=== PATIENT | male | born 1955 | race Caucasian/White ===

== ENCOUNTER 2020-11-23 15:20 | Observation (INO) | payer OTHER ==
[~2020-11-23] VITALS: Ht 167.6 cm; Wt 97.1 kg
[2020-11-23 15:28] VITALS: BP 157/83
[2020-11-23] MEDS ORDERED: PRILOSEC OTC20 MG PO (15:30)
[2020-11-23 16:00] LABS: ABSOLUTE BASOPHILS 0.2 thou/uL (0.0-0.2); ABSOLUTE EOSINOPHILS 0.3 thou/uL (0.0-0.7); ABSOLUTE LYMPHOCYTES 1.9 thou/uL (0.8-5.3); ABSOLUTE MONOCYTES 0.7 thou/uL (0.0-1.2); ABSOLUTE NEUTROPHILS 6.3 thou/uL (1.6-8.1); BASOPHILS 2.3 %; EOSINOPHILS 3.4 %; HEMATOCRIT 23.2 % (42.0-52.0); LYMPHOCYTES 20.1 %; MCH 14.9 pg (26.0-34.0); MCHC 28.5 g/dL (28.0-37.0); MCV 52.2 fL (80.0-100.0); MONOCYTES 7.9 %; MPV 8.4 fl. (7.2-11.1); NUCLEATED RBCS 0 /100WBC; PLATELET COUNT* 317 thou/uL (150-400); POLYS 66.3 %; RBC 4.44 mil/uL (4.50-6.00); RDW-CV 20.8 % (10.5-14.5); WBC 9.4 thou/uL (4.0-11.0)
[2020-11-23 16:04] LABS: CALCIUM 7.6 mg/dL (8.5-10.1); HEMOGLOBIN 6.6 gm/dL (14.0-18.0); POTASSIUM 3.2 mmol/L (3.5-5.1)
[2020-11-23 16:15] LABS: ALBUMIN 3.6 g/dL (3.4-5.0); DIRECT BILIRUBIN 0.1 mg/dL (<0.1-0.3); MAGNESIUM 2.1 mg/dL (1.8-2.4); TOTAL BILIRUBIN 0.3 mg/dL (<0.1-1.0); TOTAL PROTEIN 7.2 g/dL (6.4-8.2)
[2020-11-23 18:22] LABS: ANISOCYTOSIS 2+; HYPOCHROMASIA 3+; MICROCYTES 3+; POIKILOCYTOSIS 1+; POLYCHROMASIA 1+
[2020-11-23 19:13] LABS: URINE BILIRUBIN NEGATIVE (Negative); URINE BLOOD NEGATIVE (Negative); URINE CLARITY CLEAR; URINE COLOR YELLOW; URINE GLUCOSE-RANDOM 1+ (Negative); URINE KETONES TRACE (Negative); URINE LEUKOCYTES NEGATIVE (Negative); URINE NITRITE NEGATIVE (Negative); URINE PROTEIN NEGATIVE (Negative); URINE SPECIFIC GRAVITY >= 1.030 (1.005-1.030); URINE UROBILINOGEN 0.2 E.U./dl (0.2-1.0)
[2020-11-23 19:50] VITALS: BP 133/72
[2020-11-23 20:02] VITALS: BP 138/70
[2020-11-23 21:28] LABS: HEMATOCRIT 25.7 % (42.0-52.0); HEMOGLOBIN 7.5 gm/dL (14.0-18.0)
[2020-11-23 21:51] LABS: % SATURATION 8 % (20-39); IRON 35 ug/dL (50-175)
[2020-11-24] VITALS: BP 120/60
[2020-11-24 04:00] VITALS: BP 124/64
[2020-11-24] MEDS ORDERED: ZITHROMAX500 MG PO (07:30)
[2020-11-24] MEDS ORDERED: VENTOLIN HFA 1818 GM INH (07:31)
[2020-11-24] MEDS ORDERED: PREDNISONE 20 M20 M1 PO (07:31)
[2020-11-24 07:45] LABS: HEMATOCRIT 24.8 % (42.0-52.0); HEMOGLOBIN 7.1 gm/dL (14.0-18.0); MCH 15.9 pg (26.0-34.0); MCHC 28.7 g/dL (28.0-37.0); MCV 55.4 fL (80.0-100.0); MPV 8.7 fl. (7.2-11.1); RBC 4.49 mil/uL (4.50-6.00)
[2020-11-24 07:46] LABS: CALCIUM 7.6 mg/dL (8.5-10.1); CREATININE 0.8 mg/dL (0.6-1.3); POTASSIUM 4.6 mmol/L (3.5-5.1)
[2020-11-24 08:09] VITALS: BP 137/77
--- NOTE | 2020-11-24 11:31 | EKG ---
[place] [address] ELECTROCARDIOGRAM REPORT Name: ARSENIO TEJADA Room: [address] ADM IN .R.#: [id number] Admission: 11/23/20 Attend Phys: Tyrell Rios, Discharge: Date of : 57 Date of Service: 11/23/20 1607 Report #: [id number] THIS REPORT FOR: //name// [facility] ED Test Date: 2020-11-23 Test Time: 16:07:09 Pat Name: ARSENIO TEJADA Department: Room: [facility] Gender: M Algologist: JUNIOR : 1955 Requested By: Kirk Can Order Number: [id number] MD: Simone Kramer Measurements Intervals Bowman Rate: 109 P: 17 GA: 144 QRS: 40 QRSD: 83 T: 43 QT: 347 QTc: 468 Interpretive Statements Sinus tachycardia Probable left atrial enlargement Minimal ST depression, inferior leads No previous ECG available for comparison Electronically Signed On 11-24-2020 11:30:53 [employer] by Simone Kramer [email or web address] <ELECTRONICALLY SIGNED> By: Simone Kramer MD, [facility] 11/24/20 1130 1607 1607 Simone Kramer MD, [facility] /EPI
--- NOTE | 2020-11-24 12:11 | 2DMMODE ---
[place] [address] 2 D/M-MODE ECHOCARDIOGRAM Name: MALLORYARSENIO R Room: [address] IN .David.#: [id number] Admission: 11/23/20 Attend Phys: Tyrell Rios, Discharge: Date of : 57 Date of Service: 11/24/20 1211 Report #: [id number] THIS REPORT FOR: cc: Parker Nichols MD, Matthew W. MD Holkins,Simone Dutton MD [facility] ~ APPROVED REPORT Study performed: 11/24/2020 10:16:58 EXAM: Comprehensive 2D, Doppler, and color-flow Echocardiogram Patient Location: In-Patient Room #: [facility] Status: routine BSA: 2.06 HR: 87 bpm BP: 137/77 mmHg Rhythm: NSR Other Information Study Quality: Good Indications Dyspnea 2D Dimensions IVSd: 11.99 (7-11mm) LVOT Diam: 22.42 (18-24mm) LVDd: 37.57 mm PWd: 9.66 (7-11mm) Ascending Ao: 32.23 (22-36mm) LVDs: 25.65 (25-40mm) Aortic Root: 41.37 mm Volumes Left Atrial Volume (Systole) LA ESV Index: 25.50 mL/m2 Aortic Valve AoV Peak Jose E.: 1.57 m/s AO Peak Gr.: 9.87 mmHg LVOT Max P.92 mmHg AO Mean Gr.: 5.02 mmHg LVOT Mean P.34 mmHg LVOT Max V: 1.49 m/s AO V2 VTI: 27.49 cm LVOT Mean V: 0.96 m/s LUCRECIA (VTI): 3.81 cm2 LVOT V1 VTI: 26.51 [place] [address] 2 D/M-MODE ECHOCARDIOGRAM Name: ARSENIO TEJADA Room: [address] IN ..#: [id number] Admission: 11/23/20 Attend Phys: Tyrell Rios, Discharge: Date of : 57 Date of Service: 11/24/20 1211 Report #: [id number] Mitral Valve E/A Ratio: 1.34 MV Decel. Time: 196.83 ms MV E Max Jose E.: 1.03 m/s MV PHT: 57.08 ms MVA (PHT): 3.85 cm2 TDI E/Lateral E': 8.58 E/Medial E': 7.36 Medial E' Jose E.: 0.14 m/s Lateral E' Jose E.: 0.12 m/s Pulmonary Valve PV Peak Jose E.: 1.20 m/s PV Peak Gr.: 5.74 mmHg Left Ventricle The left ventricle is normal size. There is normal LV segmental wall motion. There is normal left ventricular wall thickness. Left ventricular systolic function is normal. The left ventricular ejection fraction is within the normal range. LVEF is 60-65%. The left ventricular diastolic function is normal. Right Ventricle The right ventricle is normal size. The right ventricular systolic function is normal. Atria The left atrium size is normal. The right atrium size is normal. Aortic Valve Mild aortic valve sclerosis. No aortic regurgitation is present. There is no aortic valvular stenosis. Mitral Valve The mitral valve is normal in structure. There is no mitral valve regurgitation noted. No evidence of mitral valve stenosis. Tricuspid Valve The tricuspid valve is normal in structure. Trace tricuspid regurgitation. Unable to assess PA pressure. Pulmonic Valve The pulmonary valve is normal in structure. There is no pulmonic [place] [address] 2 D/M-MODE ECHOCARDIOGRAM Name: ARSENIO TEJADA David Room: [address] IN [facility]#: [id number] Admission: 11/23/20 Attend Phys: Tyrell Rios, Discharge: Date of : 57 Date of Service: 11/24/20 1211 Report #: [id number] Great Vessels The aortic root is normal in size. IVC is normal in size and collapses >50% with inspiration. Pericardium There is no pericardial effusion. <Conclusion> The left ventricle is normal size. There is normal left ventricular wall thickness. Left ventricular systolic function is normal. The left ventricular ejection fraction is within the normal range. LVEF is 60-65%. The right ventricle is normal size. The left atrium size is normal. Mild aortic valve sclerosis. No aortic regurgitation is present. There is no aortic valvular stenosis. The mitral valve is normal in structure. The tricuspid valve is normal in structure. IVC is normal in size and collapses >50% with inspiration. There is no pericardial effusion. There is normal LV segmental wall motion. <ELECTRONICALLY SIGNED> By: Simone Kramer MD, FACC 11/24/20 121 10 10 Simone Kramer MD, FACC /INF
[2020-11-24 13:18] VITALS: BP 129/70
[2020-11-24 14:01] LABS: HEMATOCRIT 25.5 % (42.0-52.0); HEMOGLOBIN 7.4 gm/dL (14.0-18.0)
[2020-11-24 16:24] VITALS: BP 107/62
[2020-11-24] MEDS ORDERED: IRON325 M1 PO (16:59)
[2020-11-24 18:39] VITALS: BP 107/62
== END 2020-11-24 19:00 | disposition home or self-care (01) ==
LOC: M.ERS 15:20 → M.2W 16:40 → M.TBA-ER 16:40 → M.2W 16:40
PROVIDERS: Emergency Medicine; ADMIT Internal Medicine; ATTEND Internal Medicine
DX: D62 Acute posthemorrhagic anemia (principal); E87.6 Hypokalemia; Z20.828 Contact with and (suspected) exposure to other viral communicable diseases; I47.1 Supraventricular tachycardia; R06.02 Shortness of breath; E66.9 Obesity, unspecified; Z90.49 Acquired absence of other specified parts of digestive tract; Z68.34 Body mass index [BMI] 34.0-34.9, adult